=== PATIENT | male | born 1970 | race Caucasian/White ===

== ENCOUNTER 2016-10-23 14:26 | Emergency (ER) | payer BC ==
[~2016-10-23] VITALS: Ht 185.4 cm; Wt 78.1 kg
[~2016-10-23 14:26] MED LIST: LEVO88TA3 PO
[2016-10-23 14:31] VITALS: TEMP 36.5; Ht 185.4 cm; Wt 78.1 kg
[2016-10-23] MEDS ORDERED: SODIUM CHLORIDE 0.9% 1000ML 500 ML IV STA (14:46)
--- NOTE | 2016-10-23 14:54 | EMERGENCY ROOM VISIT NOTE ---
History Report prepared by Asael: Ayden Chavira Under the Supervision of: Dr. Carlitos Nance M.D. First contact with patient: 14:40 Chief Complaint: FLANK PAIN Stated Complaint: KIDNEY PAIN History of Present Illness The patient is a 46 year old male who presents to the Emergency Room with complaints of intermittent right flank pain beginning two months prior to arrival. He currently rates his discomfort as a 3/10 in severity. The patient notes his pain worsens with movement. He states he has a history of back problems. The patient associates hematuria with today's symptoms. He notes his back was bothering him yesterday, but he did not experience any discomfort this morning. 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 He notes he saw his specialist, who has an appointment scheduled tomorrow for an ultrasound of his liver, kidney, and bladder. The patient notes he has a bladder scope scheduled in two weeks. He states he notices some discomfort after urination. The patient denies nausea, vomiting, fever, and a history of kidney stones. He denies a family history of kidney stones, as well. The patient notes he has not had a CT of his kidneys performed. Source of History: patient Onset: two months [employer] Position: back (right flank) Symptom Intensity: 3/10 Timing: intermittent Modifying Factors (Worsening): movement, urination (discomfort following urination) Associated Symptoms: + back pain (right flank pain), + urinary symptoms ( hematuria), No fevers, No nausea, No vomiting Review of Systems See HPI for pertinent positives & negatives. A total of 10 systems reviewed and were otherwise negative. Past Medical & Surgical Medical Problems: (1) Hypothyroidism Family History Diabetes mellitus Hypertension Social History Smoking Status: Former Smoker Alcohol Use: none Drug Use: none Marital Status: Housing Status: lives with family Occupation Status: employed Current/Historical Medications Scheduled Aspirin (Aspirin Ec), 81 MG PO DAILY Levothyroxine Sodium (Synthroid), 100 MCG PO DAILY Misc Natural Products (Prostate), 1 TAB PO BID Allergies Coded Allergies: No Known Allergies (Verified , `, 11/28/15) Physical Exam Vital Signs Date Time Temp Pulse Resp B/P Pulse Ox O2 Delivery O2 Flow Rate FiO2 10/23/16 16:36 65 17 122/80 98 10/23/16 14:31 36.5 82 18 132/72 99 Room Air Physical Exam GENERAL: Patient is in no acute distress. HEENT: No acute trauma, normocephalic atraumatic, mucous membranes moist, no nasal congestion, no scleral icterus. NECK: No stridor, no adenopathy, no meningismus, trachea is midline. LUNGS: Clear to auscultation bilaterally, no wheeze, no rhonchi, breath sounds equal. HEART: Without murmurs gallops or rubs, regular rate and rhythm. ABDOMEN: Soft, nontender, bowel sounds positive, no hernias, no peritonitis. BACK: Bilateral flank discomfort with percussion. EXTREMITIES: No cyanosis or edema, full range of motion of all the joints without pain or difficulty, no signs for acute trauma. NEUROLOGIC: Oriented x 3, no acute motor or sensory deficits, no focal weakness. SKIN: No rash, no jaundice, no diaphoresis. Medical Decision & Procedures ER Provider Diagnostic Interpretation: CT results as stated below per my review and radiologist interpretation: CT SCAN OF THE ABDOMEN AND PELVIS WITHOUT IV CONTRAST CLINICAL HISTORY: Flank pain and hematuria. COMPARISON STUDY: Abdominal radiographs dated 04/29/2010. TECHNIQUE: CT scan of the abdomen and pelvis is performed from the lung bases to the proximal femora. Images are reviewed in the axial, sagittal, and coronal planes. IV contrast was not administered for this examination. Automated dose control exposure was utilized. CT DOSE: 520.91 mGy.cm FINDINGS: Lung bases: The heart is normal in size and without pericardial effusion. The lung bases are clear. Liver: The unenhanced liver is normal in size, contour, and attenuation. There is no intrahepatic biliary ductal dilatation. Gallbladder: Unremarkable. Spleen: Normal in size and attenuation. There are small scattered calcified splenic granulomas. Pancreas: Unremarkable. Adrenal glands: Unremarkable. Kidneys: The unenhanced kidneys are normal in size and without hydronephrosis. A small extrarenal pelvis is incidentally noted on the right. There are no renal calculi identified. There is no evidence of contour deforming renal mass lesion. Abdominal vasculature: The abdominal aorta is normal in course and caliber. Bowel: The small bowel and colon are normal in course and caliber. The appendix is well-visualized and normal. Peritoneum: There is no intraperitoneal free air or abdominal ascites. There is a fat-containing umbilical hernia. Lymphadenopathy: None. Pelvic viscera: The bladder, prostate, and seminal vesicles are normal as visualized. Skeletal structures: No lytic or blastic lesions are seen. There is a mild to moderate compression deformity of L4 with evidence of laminectomy and posterior fusion from L3 to L5. The orthopedic hardware appears intact. A posterior disc osteophyte complex is seen at L5-S1. IMPRESSION: There are no acute infectious or inflammatory findings in the abdomen or pelvis. Electronically signed by: Carlitos Mesa M.D. 10/23/2016 3:29 PM Laboratory Results 10/23/16 15:00 10/23/16 15:00 Test 10/23/16 14:30 10/23/16 15:00 Urine Color YELLOW Urine Appearance CLEAR (CLEAR) Urine pH 5.5 (4.5-7.5) Urine Specific [place] 1.008 (1.000-1.030) Urine Protein NEG (NEG) Urine Glucose (UA) NEG (NEG) Urine Ketones NEG (NEG) Urine Occult Blood 2+ (NEG) Urine Nitrite NEG (NEG) Urine Bilirubin NEG (NEG) Urine Urobilinogen NEG (NEG) Urine Leukocyte Esterase NEG (NEG) Urine WBC (Auto) 0 /hpf (0-5) Urine RBC (Auto) 0-4 /hpf (0-4) Urine Hyaline Casts (Auto) 0 /lpf (0-5) Urine Epithelial Cells (Auto) 0-5 /lpf (0-5) Urine Bacteria (Auto) NEG (NEG) Red Blood Count 4.86 M/uL (4.7-6.1) Mean Corpuscular Volume 88.9 fL (80-100) Mean Corpuscular Hemoglobin 30.7 pg (25-34) Mean Corpuscular Hemoglobin Concent 34.5 g/dl (32-36) RDW Standard Deviation 42.2 fL (36.4-46.3) RDW Coefficient of Variation 13.0 % (11.5-14.5) Mean Platelet Volume 10.0 fL (7.4-10.4) Anion Gap 11.0 mmol/L (3-11) Est Creatinine Clear Calc Drug Dose 110.8 ml/min Estimated GFR () 114.5 Estimated GFR (Non- 98.8 BUN/Creatinine Ratio 11.1 (10-20) Calcium Level 8.9 mg/dl (8.5-10.1) Total Bilirubin 0.2 mg/dl (0.2-1) Aspartate Amino Transf (AST/SGOT) 22 U/L (15-37) Alanine Aminotransferase (ALT/SGPT) 28 U/L (12-78) Alkaline Phosphatase 53 U/L (45-117) Total Protein 7.3 gm/dl (6.4-8.2) Albumin 3.9 gm/dl (3.4-5.0) Globulin 3.4 gm/dl (2.5-4.0) Albumin/Globulin Ratio 1.1 (0.9-2) Lipase 174 U/L (73-393) Laboratory results reviewed by me. Medications Administered Medications (Trade) Dose Ordered Sig/Eli Route Start Time Stop Time Status Last Admin Dose Admin Sodium Chloride (Nss 1000ml) 500 ml @ 999 mls/hr Q31M STAT IV 10/23/16 14:46 10/23/16 15:16 DC 10/23/16 15:02 999 MLS/HR ED Course 1441: The patient was evaluated in room C9. A complete history and physical exam was performed. 1446: Ordered Sodium Chloride 500 ml @ 999 mls/hr IV. 1625: Reevaluated the patient. Discussed results and discharge instructions: He verbalized understanding and agreement. The patient is ready for discharge. Medical Decision The differential diagnoses include but are not limited to: renal failure, renal stones, musculoskeletal pain, UTI, mass, pyelonephritis. There is no leukocytosis or concerning anemia. No significant electrolyte abnormality, kidney failure, hepatitis or pancreatitis. Urinalysis does not show infection but some hematuria was seen. Abdominal and pelvis CT shows no renal stone, no hydronephrosis, no renal lesion, there is no ureteral obstruction. The gallbladder looked unremarkable. The patient received IV saline, he does not need anything for pain, he is now pain free. This pain may actually be musculoskeletal as it does worsen with activity and movement. He does have an appointment to see urology, he has a cystoscopy scheduled--I think he needs to keep this given the hematuria findings. He was reassured, and was discharged home. Impression Primary Impression: Bilateral flank pain Additional Impression: Hematuria Scribe Attestation The scribe's documentation has been prepared under my direction and personally reviewed by me in its entirety. I confirm that the note above accurately reflects all work, treatment, procedures, and medical decision making performed by me. Departure Information Dispostion Home / Self-Care Referrals Josefina Cook P.A. (PCP) Forms HOME CARE DOCUMENTATION FORM, IMPORTANT VISIT INFORMATION Patient Instructions My [facility] Additional Instructions over the counter pain meds heat may help massage and gentle stretching may help follow with urology for the cystoscopy ct today was ok, lab work was all ok return for fever or uncontrolled symptoms Problem Qualifiers
[2016-10-23] MEDS ORDERED: MISC1CAP2 PO (15:08)
[2016-10-23] MEDS ORDERED: LEVO100T PO (15:08)
[2016-10-23] MEDS ORDERED: ASPI81TA28 PO (15:08)
[2016-10-23 15:30] LABS: CREATININE 0.93 mg/dl (0.60-1.40)
[2016-10-23 15:31] LABS: BUN/CREATININE RATIO 11.1 (10-20); CALCIUM 8.9 mg/dl (8.5-10.1); POTASSIUM 4.2 mmol/L (3.5-5.1)
--- NOTE | 2016-10-23 15:31 | DIAGNOSTIC IMAGING REPORT ---
CT SCAN OF THE ABDOMEN AND PELVIS WITHOUT IV CONTRAST CLINICAL HISTORY: Flank pain and hematuria. COMPARISON STUDY: Abdominal radiographs dated 04/29/2010. TECHNIQUE: CT scan of the abdomen and pelvis is performed from the lung bases to the proximal femora. Images are reviewed in the axial, sagittal, and coronal planes. IV contrast was not administered for this examination. Automated dose control exposure was utilized. CT DOSE: 520.91 mGy.cm FINDINGS: Lung bases: The heart is normal in size and without pericardial effusion. The lung bases are clear. Liver: The unenhanced liver is normal in size, contour, and attenuation. There is no intrahepatic biliary ductal dilatation. Gallbladder: Unremarkable. Spleen: Normal in size and attenuation. There are small scattered calcified splenic granulomas. Pancreas: Unremarkable. Adrenal glands: Unremarkable. Kidneys: The unenhanced kidneys are normal in size and without hydronephrosis. A small extrarenal pelvis is incidentally noted on the right. There are no renal calculi identified. There is no evidence of contour deforming renal mass lesion. Abdominal vasculature: The abdominal aorta is normal in course and caliber. Bowel: The small bowel and colon are normal in course and caliber. The appendix is well-visualized and normal. Peritoneum: There is no intraperitoneal free air or abdominal ascites. There is a fat-containing umbilical hernia. Lymphadenopathy: None. Pelvic viscera: The bladder, prostate, and seminal vesicles are normal as visualized. Skeletal structures: No lytic or blastic lesions are seen. There is a mild to moderate compression deformity of L4 with evidence of laminectomy and posterior fusion from L3 to L5. The orthopedic hardware appears intact. A posterior disc osteophyte complex is seen at L5-S1. IMPRESSION: There are no acute infectious or inflammatory findings in the abdomen or pelvis. Electronically signed by: Carlitos Mesa M.D. 10/23/2016 3:29 PM Dictated Date/Time: 10/23/2016 3:24 PM
[2016-10-23 15:33] LABS: ALB/GLOB RATIO 1.1 (0.9-2)
[2016-10-23 15:38] LABS: URINE APPEARANCE CLEAR (CLEAR); URINE BILIRUBIN NEG (NEG); URINE COLOR YELLOW; URINE EPITHELIAL CELL AUTO 0-5 /lpf (0-5); URINE NITRITE NEG (NEG); URINE PH 5.5 (4.5-7.5); URINE SPECIFIC GRAVITY 1.008 (1.000-1.030); UROBILINOGEN NEG (NEG); ZZUR CULT IF INDIC CLEAN CATCH NO
[2016-10-23 15:45] LABS: MANUAL MICROSCOPIC REQUIRED? NO; REVIEW REQ? NO
[2016-10-23 16:16] LABS: HEMATOCRIT 43.2 % (42-52); MEAN CELL VOLUME 88.9 fL (80-100); MEAN CORPUSCULAR HEMOGLOBIN 30.7 pg (25-34); MEAN CORPUSCULAR HGB CONC 34.5 g/dl (32-36); PLATELET COUNT 213 K/uL (130-400); RED BLOOD COUNT 4.86 M/uL (4.7-6.1); WHITE BLOOD COUNT 4.99 K/uL (4.8-10.8)
[2016-10-23 16:36] VITALS: BP 122/80; PULSE 65; O2SAT 98
== END 2016-10-23 16:38 | disposition home or self-care (01) ==
LOC: C.EDB 14:27 → C.EDC 16:38
DX: R10.9 Unspecified abdominal pain (principal); R31.9 Hematuria, unspecified; E03.9 Hypothyroidism, unspecified; Z87.891 Personal history of nicotine dependence; Z79.82 Long term (current) use of aspirin; Z79.899 Other long term (current) drug therapy; Z82.49 Family history of ischemic heart disease and other diseases of the circulatory system; Z83.3 Family history of diabetes mellitus

== ENCOUNTER 2017-06-07 09:26 | Emergency (ER) | payer BC ==
[~2017-06-07] VITALS: Ht 185.4 cm; Wt 76.3 kg
[~2017-06-07 09:26] MED LIST changes: +ASPI81TA28 PO; +LEVO100T PO; -LEVO88TA3 PO; +MISC1CAP2 PO
[2017-06-07 09:31] VITALS: Ht 185.4 cm; Wt 76.3 kg
[2017-06-07] MEDS ORDERED: KETOROLAC TROMETHAMINE 30 MG/ML VIAL IV STA (09:48)
[2017-06-07 10:13] LABS: POINT OF CARE TROPONIN I < 0.030 ng/ml (0-0.045)
[2017-06-07 10:19] LABS: BASO % 0.4 %; BASO ABS # 0.02 K/uL (0-0.2); COMPLETE YES; EOS % 4.2 %; HEMATOCRIT 44.4 % (42-52); IG% 0.2 %; LYMPH % 22.6 %; LYMPH ABS # 1.25 K/uL (1.2-3.4); MEAN CELL VOLUME 89.2 fL (80-100); MEAN CORPUSCULAR HEMOGLOBIN 30.9 pg (25-34); MEAN CORPUSCULAR HGB CONC 34.7 g/dl (32-36); MEAN PLATELET VOLUME 9.6 fL (7.4-10.4); MONO % 13.6 %; PLATELET COUNT 195 K/uL (130-400); RED BLOOD COUNT 4.98 M/uL (4.7-6.1); WHITE BLOOD COUNT 5.53 K/uL (4.8-10.8)
[2017-06-07 10:24] LABS: BUN/CREATININE RATIO 9.1 (10-20); CALCIUM 9.4 mg/dl (8.5-10.1); POTASSIUM 3.9 mmol/L (3.5-5.1)
[2017-06-07 10:28] LABS: PARTIAL THROMBOPLASTIN RATIO 1.1; PROTHROMBIN TIME (PATIENT) 10.6 SECONDS (9.0-12.0)
--- NOTE | 2017-06-07 10:35 | DIAGNOSTIC IMAGING REPORT ---
CHEST 2 VIEWS ROUTINE CLINICAL HISTORY: Chest pain. Chest tightness. COMPARISON STUDY: Chest radiograph February 24, 2014. FINDINGS: Lung volumes are normal. No pneumothorax or pleural effusion is present. There is no consolidation to suggest pneumonia. Cardiomediastinal silhouette is normal. Pulmonary vascularity is normal. Lumbar spine fusion hardware is partially imaged. IMPRESSION: No acute cardiopulmonary findings. Electronically signed by: Bakari Thompson M.D. 06/07/2017 10:34 AM Dictated Date/Time: 06/07/2017 10:33 AM
[2017-06-07] MEDS ORDERED: OPTIRAY 320 IV PRN (11:00)
--- NOTE | 2017-06-07 11:21 | DIAGNOSTIC IMAGING REPORT ---
CT ANGIOGRAPHY OF THE CHEST, PULMONARY EMBOLUS PROTOCOL CLINICAL HISTORY: Shoulder and chest pain. Chest tightness. COMPARISON STUDY: Chest radiograph February 24, 2014 and June 07, 2017. TECHNIQUE: Following IV administration of 92 mL of [id number]-[id number], helical axial images of the chest were obtained utilizing the pulmonary embolus protocol. Maximal intensity projections and sagittal and coronal reformats were viewed on an independent 3D workstation. IV contrast was administered without complication. A dose lowering technique was utilized adhering to the principles of ALARA. FINDINGS: No pulmonary emboli are identified. There is no evidence of thoracic aortic dissection. The size of the heart is normal. There is no pericardial effusion. No enlarged thoracic lymph nodes are present. Central airways are patent. Mild symmetric biapical opacities suggest scarring. There is no consolidation to suggest pneumonia. No pneumothorax or pleural effusion is present. Bony thorax is unremarkable. A few calcified granulomas within the spleen are noted. IMPRESSION: 1. No pulmonary emboli identified. 2. No acute intrathoracic findings. Electronically signed by: Bakari Thompson M.D. 06/07/2017 11:20 AM Dictated Date/Time: 06/07/2017 11:13 AM
[2017-06-07 12:12] VITALS: BP 112/70; PULSE 57; TEMP 36.9; O2SAT 99
--- NOTE | 2017-06-07 15:34 | EMERGENCY ROOM VISIT NOTE ---
History Report prepared by Asael: Jessica Catalan Under the Supervision of: Dr. Jl Toribio M.D. First contact with patient: 09:38 Chief Complaint: CARDIAC ASSESSMENT Stated Complaint: SHOULDER PAIN AND TIGHT CHEST History of Present Illness The patient is a 47 year old male who presents to the Emergency Room for a cardiac assessment. Last night the patient developed bilateral shoulder pain that radiated into his back and neck. He states that this pain has been constant and has continued into the morning. It is exacerbated by movement of the arms and lying flat. He feels most comfortable sitting or standing and states that he had to sleep sitting up. This morning the patient continued to have that pain, but he also developed chest tightness across his entire chest and into his ribs. He woke up around 8am with this new chest pain. The patient states that "shallow breathing is fine," but he has pain with deep inspiration. He rates his current pain as a 5/10 in severity. The patient denies fever, cough , cold symptoms, leg pain or swelling, and numbness or weakness. Source of History: patient Onset: last night Position: chest Symptom Intensity: 5/10 Quality: other (tightness) Timing: constant Modifying Factors (Worsening): breathing (deep inspiration), movement (of arms) Modifying Factors (Relieving): other (sitting/standing) Associated Symptoms: + neck pain, + back pain, No fevers, No cough, No weakness, No numbness Review of Systems See HPI for pertinent positives & negatives. A total of 10 systems reviewed and were otherwise negative. Past Medical & Surgical Medical Problems: (1) Hypothyroidism Family History Diabetes mellitus Hypertension Social History Smoking Status: Never Smoker Smokeless Tobacco Use: Yes Alcohol Use: none Drug Use: none Marital Status: Housing Status: lives with family Occupation Status: employed Current/Historical Medications Scheduled Aspirin (Aspirin Ec), 81 MG PO DAILY Levothyroxine Sodium (Synthroid), 100 MCG PO DAILY Allergies Coded Allergies: No Known Allergies (Verified , `, 06/07/17) Physical Exam Vital Signs Date Time Temp Pulse Resp B/P (MAP) Pulse Ox O2 Delivery O2 Flow Rate FiO2 06/07/17 12:12 36.9 57 18 112/70 99 06/07/17 11:21 62 22 110/74 98 Room Air 06/07/17 10:46 64 20 107/78 98 Room Air 06/07/17 09:49 65 06/07/17 09:44 72 20 143/72 100 Room Air 06/07/17 09:31 36.9 71 20 143/87 Room Air Physical Exam Constitutional: Vital signs reviewed. Eyes: Pupils are equal round reactive to light. Conjunctiva are noninjected. ENT: Pharynx is clear without erythema or exudate. Mucous membranes are moist. Neck supple without meningeal signs. Respiratory: Clear to auscultation bilaterally. Breath sounds are equal bilaterally. Cardiovascular: Regular rate and rhythm. No rubs or gallops. GI: Soft, nondistended and nontender. Bowel sounds are present. Musculoskeletal: No peripheral edema. No lower extremity tenderness. No midline tenderness to the cervical, thoracic, or lumbosacral spine. Pain with movement of his arms. Integumentary: No cyanosis. Neurological: The patient is awake and alert. No focal deficits. Psychiatric: Normal affect. Medical Decision & Procedures ER Provider Diagnostic Interpretation: Radiology results as stated below per my review and the radiologist's interpretation: CHEST 2 VIEWS ROUTINE CLINICAL HISTORY: Chest pain. Chest tightness. COMPARISON STUDY: Chest radiograph February 24, 2014. FINDINGS: Lung volumes are normal. No pneumothorax or pleural effusion is present. There is no consolidation to suggest pneumonia. Cardiomediastinal silhouette is normal. Pulmonary vascularity is normal. Lumbar spine fusion hardware is partially imaged. IMPRESSION: No acute cardiopulmonary findings. Electronically signed by: Bakari Thompson M.D. 06/07/2017 10:34 AM Dictated Date/Time: 06/07/2017 10:[address] ANGIOGRAPHY OF THE CHEST, PULMONARY EMBOLUS PROTOCOL CLINICAL HISTORY: Shoulder and chest pain. Chest tightness. COMPARISON STUDY: Chest radiograph February 24, 2014 and June 07, 2017. TECHNIQUE: Following IV administration of 92 mL of [id number]-[id number], helical axial images of the chest were obtained utilizing the pulmonary embolus protocol. Maximal intensity projections and sagittal and coronal reformats were viewed on an independent 3D workstation. IV contrast was administered without complication. A dose lowering technique was utilized adhering to the principles of ALARA. FINDINGS: No pulmonary emboli are identified. There is no evidence of thoracic aortic dissection. The size of the heart is normal. There is no pericardial effusion. No enlarged thoracic lymph nodes are present. Central airways are patent. Mild symmetric biapical opacities suggest scarring. There is no consolidation to suggest pneumonia. No pneumothorax or pleural effusion is present. Bony thorax is unremarkable. A few calcified granulomas within the spleen are noted. IMPRESSION: 1. No pulmonary emboli identified. 2. No acute intrathoracic findings. Electronically signed by: Bakari Thompson M.D. 06/07/2017 11:20 AM Dictated Date/Time: 06/07/2017 11:13 AM Laboratory Results 06/07/17 09:40 Red Blood Count 4.98, Mean Corpuscular Volume 89.2, Mean Corpuscular Hemoglobin 30.9, Mean Corpuscular Hemoglobin Concent 34.7, Mean Platelet Volume 9.6, Neutrophils (%) (Auto) 59.0, Lymphocytes (%) (Auto) 22.6, Monocytes (%) (Auto) 13.6, Eosinophils (%) (Auto) 4.2, Basophils (%) (Auto) 0.4, Neutrophils # (Auto ) 3.27, Lymphocytes # (Auto) 1.25, Monocytes # (Auto) 0.75, Eosinophils # (Auto ) 0.23, Basophils # (Auto) 0.02 06/07/17 09:40 Test 06/07/17 09:40 06/07/17 09:54 06/07/17 11:46 White Blood Count 5.53 K/uL (4.8-10.8) Red Blood Count 4.98 M/uL (4.7-6.1) Hemoglobin 15.4 g/dL (14.0-18.0) Hematocrit 44.4 % (42-52) Mean Corpuscular Volume 89.2 fL (80-100) Mean Corpuscular Hemoglobin 30.9 pg (25-34) Mean Corpuscular Hemoglobin Concent 34.7 g/dl (32-36) Platelet Count 195 K/uL (130-400) Mean Platelet Volume 9.6 fL (7.4-10.4) Neutrophils (%) (Auto) 59.0 % Lymphocytes (%) (Auto) 22.6 % Monocytes (%) (Auto) 13.6 % Eosinophils (%) (Auto) 4.2 % Basophils (%) (Auto) 0.4 % Neutrophils # (Auto) 3.27 K/uL (1.4-6.5) Lymphocytes # (Auto) 1.25 K/uL (1.2-3.4) Monocytes # (Auto) 0.75 K/uL (0.11-0.59) Eosinophils # (Auto) 0.23 K/uL (0-0.5) Basophils # (Auto) 0.02 K/uL (0-0.2) RDW Standard Deviation 43.5 fL (36.4-46.3) RDW Coefficient of Variation 13.3 % (11.5-14.5) Immature Granulocyte % (Auto) 0.2 % Immature Granulocyte # (Auto) 0.01 K/uL (0.00-0.02) Prothrombin Time 10.6 SECONDS (9.0-12.0) Prothromb Time International Ratio 1.0 (0.9-1.1) Activated Partial Thromboplast Time 28.3 SECONDS (21.0-31.0) Partial Thromboplastin Ratio 1.1 Anion Gap 4.0 mmol/L (3-11) Est Creatinine Clear Calc Drug Dose 99.6 ml/min Estimated GFR () 104.1 Estimated GFR (Non- 89.9 BUN/Creatinine Ratio 9.1 (10-20) Calcium Level 9.4 mg/dl (8.5-10.1) Bedside D-Dimer > 450 ng/mlFEU (0-450) Bedside Troponin I < 0.030 ng/ml (0-0.045) Laboratory results as reviewed by me. Medications Administered Medications (Trade) Dose Ordered Sig/Eli Route Start Time Stop Time Status Last Admin Dose Admin Ketorolac Tromethamine (Toradol Inj) 10 mg NOW STAT IV 06/07/17 09:48 06/07/17 09:49 DC 06/07/17 10:06 10 MG ECG Indication: chest pain Rate (beats per minute): 69 Rhythm: normal sinus Findings: no acute ischemic change, no ectopy ED Course 0938: The patient was evaluated in room A12B. A complete history and physical exam was performed. 0948: Toradol 10 mg IV 1045: I updated the patient and discussed the risks and benefits of a CT scan and he is agreeable to CT. 1141: I reevaluated the patient. His chest pain has resolved. I discussed the test results and need for follow up for outpatient stress testing. He is going to take a daily baby aspirin. 1206: The patient is feeling better and resting comfortably. I discussed the results and treatment plan with the patient. I answered all pertaining questions that he had. He expressed understanding and verbalized agreement. The patient will be discharged home. Medical Decision This is a 47-year-old male who presents with chest pain and back pain. Differential diagnosis includes muscular strain, aortic aneurysm, NC, unstable angina, pleurisy, pulmonary edema, pneumothorax. I did perform a limited focused review of portions of the patient's old chart on the electronic medical record. The patient has had no recent pertinent visits to this hospital. I did evaluate the patient as noted above. The patient developed upper back and shoulder pain last night. It is reproducible with movement and position and appears to be musculoskeletal in nature. This morning he woke up at 8 AM with pain across his chest which he describes as a tightness. IV access was established. The patient was placed on a continuous [employer]. I did treat patient with Toradol IV. I did order and personally review the patient's 12-lead EKG and chest x-ray as described above. I did order and review the patient's blood work as noted in the electronic medical record. Troponin is negative. D-dimer is elevated. I did reevaluate the patient. I did discuss the elevated d-dimer and rationale for CT scan. He did agree to the CT scan. I did order a CT of the chest. I did review the images myself as well as the radiology report as described above. There is no evidence of acute cardiopulmonary process or eat. I did reassess the patient. He is no longer having any chest discomfort. His shoulders and back still hurt him somewhat but that is lessened as well. I did discuss the test results with the patient. I did recommend he follow closely with his doctor for further workup including cardiac stress testing because of this chest discomfort. He will take a baby aspirin daily. He was informed of the limitations of the workup done here in emergency department and discharged in good condition. He was given return instructions as outlined below. Medication Reconcilliation Current Medication List: was personally reviewed by me Blood Pressure Screening Patient's blood pressure: Elevated blood pressure Blood pressure disposition: Referred to PCP Impression Primary Impression: Acute chest pain Additional Impression: Thoracic back pain Scribe Attestation The scribe's documentation has been prepared under my direct and personally reviewed by me in its entirety. I confirm that the note above accurately reflects all work, treatment, procedures, and medical decision making performed by me. Departure Information Dispostion Home / Self-Care Referrals No Doctor, Assigned (PCP) Elizabeth Ta M.D. Forms IMPORTANT VISIT INFORMATION Patient Instructions My [facility] Additional Instructions You have been examined and treated today on an emergency basis only. This is not a substitute for, or an effort to provide, complete comprehensive medical care. It is impossible to recognize and treat all injuries or illnesses in a single emergency department visit. It is therefore important that you follow up closely with your physician for further workup including outpatient cardiac stress testing. Call as soon as possible for an appointment. Return for worsening symptoms or if you develop fever, vomiting, numbness or weakness in your arms or legs, profuse sweating, lightheadedness, difficulty breathing or any other concerning symptoms. Problem Qualifiers Additional Impression: Thoracic back pain Chronicity: acute Back pain laterality: bilateral Qualified Codes: M54.6 - Pain in thoracic spine
== END 2017-06-07 12:14 | disposition home or self-care (01) ==
LOC: C.EDB 09:27 → C.EDA 12:14
DX: R07.9 Chest pain, unspecified (principal); M54.6 Pain in thoracic spine; E03.9 Hypothyroidism, unspecified; Z83.3 Family history of diabetes mellitus; Z82.49 Family history of ischemic heart disease and other diseases of the circulatory system; Z79.82 Long term (current) use of aspirin; Z79.899 Other long term (current) drug therapy